=== PATIENT | female | born 1950 | race Caucasian/White ===

== ENCOUNTER → 2017-12-08 | Outpatient (CLI) | payer MEDICARE ==
[2017-12-08 18:20] LABS: BICARBONATE 28.1 MEQ/L (21.0-32.0); CREATININE 0.84 MG/DL (0.50-1.00)
== END ==
LOC: PLAB 14:10
PROVIDERS: ATTEND Orthopaedic Surgery
DX: N18.9 Chronic kidney disease, unspecified (principal)
CPT/HCPCS: 36415; 80048